=== PATIENT | male | born 1940 | race Caucasian/White ===

== ENCOUNTER 2017-09-11 22:02 | Inpatient (IN) | payer OTHER ==
[~2017-09-11] VITALS: Ht 172.7 cm; Wt 111.7 kg
[~2017-09-11 22:02] MED LIST: AMOX TR-K CLV1 EAC4 PO; FLOMAX0.4 MG PO; IRON325 M1 PO; LASIX40 MG PO; LIPITOR80 MG PO; MOTRIN800 MG PO; NITROSTAT0.4 MG SL; PREVACID30 MG PO; TEMOVATE 0.05%30 GM TP; VALIUM5 MG PO; VICODIN 5-3001 EACH PO; VITAMIN D2000 UNIT PO; [UNRECOGNIZED DRUG - OTHER]
[2017-09-12 05:54] VITALS: BP 153/81
[2017-09-12 12:45] VITALS: BP 123/68
[2017-09-12 16:17] VITALS: BP 148/68
[2017-09-12 18:04] VITALS: BP 137/77
[2017-09-12 20:00] VITALS: BP 129/66
[2017-09-12 22:00] VITALS: BP 135/86
[2017-09-13] VITALS: BP 145/68
[2017-09-13 04:00] VITALS: BP 130/74
[2017-09-13 05:30] LABS: HEMATOCRIT 36.3 % (38.0-50.0); MCV 92.4 FL (86-99)
[2017-09-13 05:58] LABS: ANION GAP 7 MEQ/L (2-14); CHLORIDE 102 MEQ/L (99-109); GFR ESTIMATE (CALCULATED) > 59 mL/min/; GLUCOSE 113 mg/dL (70-99); POTASSIUM 4.1 MEQ/L (3.7-5.4); SAMPLE HEMOLYSIS CHECK 0; SAMPLE ICTERIC CHECK 0; SAMPLE LIPEMIA CHECK 0; SODIUM 135 MEQ/L (136-147); UREA NITROGEN (BUN) 15 mg/dL (9-23)
[2017-09-13 08:00] VITALS: BP 155/70
[2017-09-13] MEDS ORDERED: ELIQUIS2.5 MG PO (13:09)
[2017-09-13] MEDS ORDERED: OXYCODONE HCL5 MG PO (13:09)
[2017-09-13] MEDS ORDERED: CELECOXIB200 MG PO (13:10)
[2017-09-13 15:53] VITALS: BP 113/61
== END 2017-09-13 16:13 | DRG 470 ==
LOC: ENRESERV 22:02 → 2SOUTH 09-12 05:28 → 3WEST 09-12 12:37
PROVIDERS: Orthopaedic Surgery
PROC: 0SRC0J9 Replacement of Right Knee Joint with Synthetic Substitute, Cemented, Open Approach (ICD-10-PCS; principal; 2017-09-12)
DX: M17.11 Unilateral primary osteoarthritis, right knee (principal); L12.0 Bullous pemphigoid; J44.9 Chronic obstructive pulmonary disease, unspecified; K59.00 Constipation, unspecified; M10.9 Gout, unspecified; K21.9 Gastro-esophageal reflux disease without esophagitis; N40.0 Benign prostatic hyperplasia without lower urinary tract symptoms; E78.5 Hyperlipidemia, unspecified; M06.9 Rheumatoid arthritis, unspecified; Z96.652 Presence of left artificial knee joint; E66.3 Overweight; Z68.39 Body mass index [BMI] 39.0-39.9, adult; Z80.1 Family history of malignant neoplasm of trachea, bronchus and lung; Z82.49 Family history of ischemic heart disease and other diseases of the circulatory system
CPT/HCPCS: 80048; 85014; 85018; C1713; J0131; J0690; J1885; J2250; J2795; J3010; J7050; L1820

== ENCOUNTER 2017-09-19 18:37 | Emergency (ER) | payer OTHER ==
[~2017-09-19] VITALS: Ht 172.7 cm; Wt 111.8 kg
[~2017-09-19 18:37] MED LIST changes: +CELECOXIB200 MG PO; +ELIQUIS2.5 MG PO; +OXYCODONE HCL5 MG PO
[2017-09-19 20:24] LABS: EOSINOPHIL (%) 4.8 % (0-5); EOSINOPHIL COUNT 0.4 K/uL (0-0.3); HEMATOCRIT 36.3 % (38.0-50.0); IMMATURE GRANULOCYTE (%) 0.7 % (0.0-0.7); IMMATURE GRANULOCYTE COUNT 0.1 K/uL; INSTRUMENT ABS NEUTROPHIL CT 4.1 K/uL; LYMPHOCYTE COUNT 1.6 K/uL (1.0-2.8); MCH 28.8 PG (29.0-34.0); MCHC 31.1 G/DL (30.0-36.0); MCV 92.4 FL (86-99); MEAN PLAT.VOLUME 9.2 uM^3 (9.0-12.4); MONOCYTE (%) 16.6 % (3-12); MONOCYTE COUNT 1.2 K/uL (0-0.8); NEUTROPHIL (%) 56.2 % (45-76); NEUTROPHIL COUNT 4.1 K/uL (1.8-6.4); PLATELET COUNT 322 K/uL (156-360); RBC DIS.WIDTH-CV 17.6 % (11.8-14.6); RBC DIS.WIDTH-SD 59.5 % (39-53); RED BLOOD COUNT 3.93 M/uL (4.00-5.50); WHITE BLOOD COUNT 7.3 K/uL (4.1-10.2)
[2017-09-19 20:31] LABS: INTER. NORMALIZED RATIO 1.1; PROTHROMBIN TIME 12.5 SEC (10.2-12.9)
[2017-09-19 20:34] LABS: PTT 32.4 SEC (25-37)
[2017-09-19 20:37] LABS: CHLORIDE 105 mEq/L (99-109); POTASSIUM 4.6 mEq/L (3.7-5.4); SODIUM 138 mEq/L (136-147)
[2017-09-19 20:39] LABS: GLUCOSE 116 mg/dL (70-99)
[2017-09-19 20:40] LABS: ANION GAP 3 MEQ/L (2-14)
[2017-09-19 20:42] LABS: GFR ESTIMATE (CALCULATED) > 59 mL/min/
[2017-09-19 20:43] LABS: UREA NITROGEN (BUN) 12 mg/dL (9-23)
[2017-09-19 21:59] VITALS: BP 128/77
== END 2017-09-19 22:01 | disposition home or self-care (01) ==
LOC: EME 18:37
PROVIDERS: Physician Assistant
DX: M79.89 Other specified soft tissue disorders (principal); Z98.890 Other specified postprocedural states; Z96.651 Presence of right artificial knee joint; R23.4 Changes in skin texture; L53.9 Erythematous condition, unspecified; Z79.01 Long term (current) use of anticoagulants
CPT/HCPCS: 73590; 80048; 85025; 85610; 85730; 93971; 99281; 99284